=== PATIENT | female | born 1955 | race African-American/Black ===

== ENCOUNTER → 2020-06-13 13:26 | Outpatient (CLI) | payer OTHER, SELFPAY ==
--- NOTE | ~2020-06-13 | MM_ITS ---
EXAMINATION: MM screening [facility] BI w dexter HISTORY: Screening mammogram TECHNIQUE: Craniocaudal and mediolateral oblique 3-D tomosynthesis images were obtained and synthetic 2-D images were generated. CAD analysis was submitted and interpreted. COMPARISON: 04/11/2018, 04/04/2018, 01/26/2017 BREAST PARENCHYMAL COMPOSITION: The breasts are heterogeneously dense, which may obscure small masses . FINDINGS: There is no evidence of suspicious mass, calcification, or architectural distortion to sugg est malignancy in either breast. There has been no suspicious interval change. IMPRESSION: 1. No mammographic evidence of malignancy. 2. Recommend routine screening mammography in one year. BI-RADS Category 1: Negative Reviewed, dictated and finalized at location A. R PHYSICIAN
== END ==
PROVIDERS: Visit Provider Nurse Practitioner
DX: Z12.31 Encounter for screening mammogram for malignant neoplasm of breast (principal)
CPT/HCPCS: 77063; 77067

== ENCOUNTER → 2021-06-17 09:29 | Outpatient (CLI) | payer OTHER, SELFPAY ==
--- NOTE | ~2021-06-17 | MM_ITS ---
EXAMINATION: MM screening [facility] BI w dexter HISTORY: Screening mammogram TECHNIQUE: Craniocaudal and mediolateral oblique 3-D tomosynthesis images were obtained and synthetic 2-D images were generated. CAD analysis was submitted and interpreted. COMPARISON: 06/13/2020, 04/11/2018, 04/04/2019 BREAST PARENCHYMAL COMPOSITION: The breasts are heterogeneously dense, which may obscure small masses . FINDINGS: There is no evidence of suspicious mass, calcification, or architectural distortion to sugg est malignancy in either breast. There has been no suspicious interval change. IMPRESSION: 1. No mammographic evidence of malignancy. 2. Recommend routine screening mammography in one year. BI-RADS Category 1: Negative Reviewed, dictated and finalized at location A. A DIRECTOR
== END ==
PROVIDERS: Visit Provider Nurse Practitioner
DX: Z12.31 Encounter for screening mammogram for malignant neoplasm of breast (principal)
CPT/HCPCS: 77063; 77067

== ENCOUNTER → 2022-09-15 07:44 | Outpatient (CLI) | payer OTHER, SELFPAY ==
--- NOTE | ~2022-09-15 | MM_ITS ---
EXAMINATION: MM screening [facility] BI w dexter HISTORY: Screening TECHNIQUE: Craniocaudal and mediolateral oblique 3-D tomosynthesis images were obtained and synthetic 2-D images were generated. CAD analysis was submitted and interpreted. COMPARISON: Comparison to multiple prior studies sequentially, with oldest reviewed study dated 10/28. BREAST PARENCHYMAL COMPOSITION: The breasts are heterogeneously dense, which may obscure small masses . FINDINGS: There is no evidence of suspicious mass, calcification, or architectural distortion to sugg est malignancy in either breast. There has been no suspicious interval change. IMPRESSION: 1. No mammographic evidence of malignancy. 2. Recommend routine screening mammography in one year. BI-RADS Category 1: Negative Reviewed, dictated and finalized at location A.
== END ==
PROVIDERS: PCP Nurse Practitioner; Visit Provider Nurse Practitioner
DX: Z12.31 Encounter for screening mammogram for malignant neoplasm of breast (principal)
CPT/HCPCS: 77063; 77067

== ENCOUNTER 2023-12-07 07:52 | Outpatient (CLI) | payer MEDICARE, SELFPAY ==
--- NOTE | ~2023-12-07 | MM_ITS ---
EXAMINATION: MM screening [facility] BI w dexter HISTORY: Screening mammogram TECHNIQUE: Craniocaudal and mediolateral oblique 3-D tomosynthesis images were obtained and synthetic 2-D images were generated. CAD analysis was submitted and interpreted. COMPARISON: 09/15/2022, 06/17/2021 bilateral screening mammogram examinations BREAST PARENCHYMAL COMPOSITION: The breasts are heterogeneously dense, which may obscure small masses . FINDINGS: There is no evidence of suspicious mass, calcification, or architectural distortion to sugg est malignancy in either breast. There has been no suspicious interval change. IMPRESSION: 1. No mammographic evidence of malignancy. 2. Recommend routine screening mammography in one year. BI-RADS Category 1: Negative Reviewed, dictated and finalized at location A.
== END 2023-12-07 07:53 ==
PROVIDERS: PCP Obstetrics & Gynecology Gynecology; Visit Provider Nurse Practitioner
DX: Z12.31 Encounter for screening mammogram for malignant neoplasm of breast (principal)
CPT/HCPCS: 77063; 77067

== ENCOUNTER 2024-12-12 07:31 | Outpatient (CLI) | payer MEDICARE, SELFPAY ==
--- NOTE | ~2024-12-12 | MM_ITS ---
EXAMINATION: MM screening [facility] BI w dexter HISTORY: Screening TECHNIQUE: Craniocaudal and mediolateral oblique 3-D tomosynthesis images were obtained and synthetic 2-D images were generated. CAD analysis was submitted and interpreted. COMPARISON: Comparison to multiple prior studies sequentially, with oldest reviewed study dated 05/31. BREAST PARENCHYMAL COMPOSITION: Not dense: There are scattered areas of fibroglandular density. FINDINGS: There is no evidence of suspicious mass, calcification, or architectural distortion to sugg est malignancy in either breast. There has been no suspicious interval change. IMPRESSION: 1. No mammographic evidence of malignancy. 2. Recommend routine screening mammography in one year. BI-RADS Category 1: Negative Reviewed, dictated and finalized at location A.
== END 2024-12-12 07:32 | disposition home or self-care (01) ==
LOC: MICIMG 08:01
PROVIDERS: PCP Obstetrics & Gynecology Gynecology; Visit Provider Obstetrics & Gynecology Gynecology
DX: Z12.31 Encounter for screening mammogram for malignant neoplasm of breast (principal)
CPT/HCPCS: 77063; 77067

== ENCOUNTER 2024-12-12 09:42 | Outpatient (CLI) | payer MEDICARE, SELFPAY ==
--- NOTE | ~2024-12-12 | DEXA_ITS ---
Bone Density Report Name: VENITA SHEIKH Age: 69 Sex: Female Ethnicity: White Date of : 1955 Indication: postmenopausal; screening for osteoporosis; height loss; Referring Provider: ANTONI ROSALES Study: Bone densitometry was performed. Exam Date: December 12, 2024 Accession number: [id number] Bone Density: Region BMD T-score Z-score Classification AP Spine(L1-L4) 1.279 2.1 4.1 Normal Femoral Neck (Left) 0.899 0.4 2.1 Normal Total Hip (Left) 1.190 2.0 3.4 Normal Femoral Neck (Right) 0.819 -0.3 1.4 Normal Total Hip (Right) 1.162 1.8 3.2 Normal Total Hip Mean 1.176 1.9 3.3 Normal World Health Organization criteria for BMD impression classify patients as: Normal (T-score at or above -1.0), Osteopenia (T-score between -1.0 and -2.5), or Osteoporosis (T-score at or below -2.5). 10-year Fracture Risk: FRAX not reported because: All T-scores for Spine Total, Hip Total, Femoral Neck at or above -1.0 Clinical Information Provided by Patient: Has used the following medications: Vitamin D Patient maximum height was 67 Menopause Age: 56 No regular weight bearing exercise Does not regularly consume dairy products Onset of menses at age 16 Number of children 2 Impression: The patient has normal bone mass. Discussion: BONE DENSITY IS ABOVE THE MINIMUM DESIRABLE LEVEL AT ALL SKELETAL SITES TESTED. This patient?s bone mineral density is above the minimum desirable level (T-score -1.0 or better) at all sites measured. The patient should follow a healthful lifestyle (good nutrition with adequate calcium and vitamin D, and appropriate weight-bearing exercise). Follow-Up: Consider repeating this study in 5 years or sooner if there is some new clinical indication. Reported by: HELEN on 12/12/2024 10:25:00 AM. Reviewed, dictated and finalized at location A.
--- OUTSIDE RECORDS SUMMARY | 2024-12-12 09:48 | XMS_ITS | Encounter Summary ---
Author Organization [facility] Address [address] [place] [address] Phone Care Team Providers Care Sap Consultant Name Role Phone Jillian Perkins APRN, LIZETTE Primary Care Provider Americo Jeffery DO Unavailable [phone] Encounter Details Date Type Department Care Team (Late st Contact Info) Description 11/07/2021 Telephone [facility] [address] [place] [address] Americo Jeffery, DO [address] [place] [address] Social History Tobacco Use Types Packs/Day Years Used Date Smoking Tobacco: Never Smokeless Tobacco: Never Alcohol Use Standard Drinks/Week Comments Yes 0 (1 standard drink = 0.6 oz pur e alcohol) occasionally PHQ-2 Answer Date Recorded Total Score - Questions 1-9 0 05/01 Comments No Sex and Gender Information Value Date Recorded Sex Assigned at Not on file Legal Sex Female 1:19 PM PATTERN MECHANIC Gender Identity Not on file Sexual Orientation Not on file documented as of this encounter Miscellaneous Notes * Telephone Encounter - Shayla Burns - 11/07/2021 11:05 AM CDT Ms. Resendiz canceled her appt. Until she gets caught up with her medical bills. Will call back in the future to natali an appt. documented in this encounter Plan of Treatment Upcoming Encounters Date Type Department Care Team (Late st Contact Info) Description 06/08/2025 8:00 AM PATTERN MECHANIC Lab [facility] [address] [phone] Lab, [facility] 06/08/2025 8:15 AM PATTERN MECHANIC Office Visit [facility] [address] [phone] Americo Jeffery DO [address] [place] [phone] documented as of this encounter Visit Diagnoses Not on filedocumented in this encounter Additional Health Concerns Assessment Noted Time PHQ-9 Depression Total Score: 0 05/16/20 21 2:47 PM PATTERN MECHANIC documented as of this encounter Care Teams Sap Consultant Relationship Specialty Start Date End Date Jillian Perkins, POLISHER EYEGLASS FRAMES, PLASTIC SHEETS SUPERVISOR [address] [place] [phone] PCP - General Certified Nurse Practitioner 08/21/19 Americo Jeffery DO [address] [place] [phone] Consulting Physician Oncology 06/06/23 documented as of this encounter
--- OUTSIDE RECORDS SUMMARY | 2024-12-12 09:48 | XMS_ITS | Encounter Summary ---
Author Organization [facility] Address [address] [place] [address] Phone Care Team Providers Care Crepe Sole Scourer Name Role Phone Jillian Perkins APRN, STRIKE OUT MACHINE OPERATOR Primary Care Provider Americo Jeffery DO Unavailable [phone] Encounter Details Date Type Department Care Team (Late st Contact Info) Description 08/15/2021 Telephone [facility] [address] [place] [address] Americo Jeffery, DO [address] [place] [address] Social History Tobacco Use Types [...] on file Legal Sex Female 1:19 PM ORDERLIES TEACHER Gender Identity Not on file Sexual Orientation Not on file documented as of this encounter Miscellaneous Notes * Telephone Encounter - Kajal William - 08/16/2021 9:03 AM CST Pt rescheduled for 11/21 @ 2:30 RLIES TEACHER * Telephone Encounter - Americo Jeffery DO - 08/16/2021 5:17 AM CST Noted, I would give her an appointment in next 2-3 months if she is feeling well. Want to make surewe continue to monitor her cbc. RLIES TEACHER * Telephone Encounter - Karla Pimentel - 08/15/2021 4:19 PM CST Patient forgot. Patient states that she will call when she is ready to reschedule. RLIES TEACHER documented in this encounter Plan of Treatment Upcoming Encounters Date Type Department Care Team (Late st Contact Info) Description 06/08/2025 8:00 AM ORDERLIES TEACHER Lab [facility] [address] [phone] Lab, [facility] 06/08/2025 8:15 AM ORDERLIES TEACHER Office [facility] [address] [phone] Americo Jeffery DO [address] [place] [phone] documented as of this encounter Visit Diagnoses Not on filedocumented in this encounter Additional Health Concerns Assessment Noted Time PHQ-9 Depression Total Score: 0 05/16/20 21 2:47 PM ORDERLIES TEACHER documented as of this encounter Care Teams Crepe Sole Scourer Relationship Specialty Start Date End Date Jillian Perkins, METAL PATTERNMAKER, STRIKE OUT MACHINE OPERATOR [address] [place] [phone] PCP - General Certified Nurse Practitioner 08/21/19 Americo Jeffery DO [address] [place] [phone] Consulting Physician Oncology 06/06/23 documented as of this encounter
--- OUTSIDE RECORDS SUMMARY | 2024-12-12 09:48 | XMS_ITS | Clinical Summary ---
Author Organization [facility] Address [address] [place] [address] Care Team Providers Care Metrology Technician Name Role Phone Unavailable Primary Care Provider Unavailabl e Source Comments [facility],non-owned Affiliates and Associated Physician Practices is amultiple site organization consisting of ambulatory clinics and hospital sitesin [place], [place], [place] and [place]. This disclosure is being madepursuant to the Care Everywhere program and may not contain all information available regarding this patient. Last updated 18.[facility] Social History Tobacco Use Types Packs/Day Years Used Date Smoking Tobacco: Never Assessed Comments Unknown Sex and Gender Information Value Date Recorded Sex Assigned at Not on file Legal Sex Female 5:44 AM ELECTRIC LINEMAN Gender Identity Not on file Sexual Orientation Not on file Plan of Treatment Health Maintenance Due Date Last Done Comments BONE DENSITY TESTING 1955 COLOGUARD (AGES 45-75) - COL ON CA SCREENING 1955 COLON MONITORING 1955 COLONOSCOPY - COLON CA SCREENING 1956 CT COLONOGRAPHY - COLON CA SCREENING 1955 Colorectal Cancer Screening 1955 FIT - COLON CA SCREENING 1955 FLEX SIG - COLON CA SCREENING 1955 LIPID TESTING 1955 MAMMOGRAM 1955 HEPATITIS C SCREENING 07/29/1974 DTAP/TDAP/TD VACCINES (1 - Tdap) 1975 PNEUMOCOCCAL VACCINE 50+ (1 of 1 - PCV) 2006 ZOSTER VACCINE (1 of 2) 2006 COVID-19 VACCINE ( - 2023-2 5 season) 2024 DEPRESSION SCREENING 07/01/2024 INFLUENZA VACCINE (Season Ended) 2025 Respiratory Syncytial Virus (RSV) Vaccine Pt: or over 60 yrs (1 - 1-dose 75+ series) 2031 HEPATITIS B VACCINE Aged Out No longe r eligible based on patient's age to complete this topic HIB VACCINE Aged Out No longer eligi ble based on patient's age to complete this topic HPV VACCINE Aged Out No longer eligi ble based on patient's age to complete this topic MENINGOCOCCAL (Group B) VACC INE SHARED DECISION-MAKING Aged Out No longer eligibl e based on patient's age to complete this topic MENINGOCOCCAL GROUPS A/C/Y/W VACCINE Aged Out No longer eligible b ased on patient's age to complete this topic
--- OUTSIDE RECORDS SUMMARY | 2024-12-12 09:48 | XMS_ITS | Clinical Summary ---
Author Organization [facility] Address [address], [facility] [address] [place] [address] Phone Care Team Providers Care Supervisor Front Name Role Phone Jillian Perkins APRN, DANCE HISTORIAN Primary Care Provider Americo Jeffery DO Unavailable [phone] Allergies No known active allergies Medications ergocalciferol (VITAMIN D) 10211 UNIT Capsule 0 Active aspirin 81 MG Chewable Tablet Take 81 mg by mouth. 0 Active lisinopril (PRINIVIL, ZESTRIL) 5 MG Tablet Take 5 mg by mouth. 0 Active Hydroquinone 4 % Cream APPLY 1 APPLICATION TOPICALLY DAILY NEEDED. FOR AGE SPOTS 1 Active triamcinolone (KENALOG) 0.1 % Cream APPLY TWICE A DAY TO AFFECTED AREA 5 Active famotidine (PEPCID) 40 MG Tablet Take 40 mg by mouth. 4 Active pantoprazole (PROTONIX) 40 MG Tablet Delayed Response Take 40 mg by mouth. 0 12/09/19 25 Discontin ued(Med List Clean Up) atorvastatin (LIPITOR) 20 MG Tablet 1 12/09/19 25 Discontin ued(Med List Clean Up) metFORMIN (GLUCOPHAGE) 500 MG Tablet 1 12/09/19 25 Discontin ued(Med List Clean Up) Active Problems Problem Noted Date Diagnosed Date Essential hypertension 04/02/2022 Gastroesophageal reflux disease 04/02/2022 06/27/2023 Normocytic normochromic anemia 04/02/2022 1 08/28/2022 Encounters Date Type Department Care Team Description 12/08/2024 8:15 AM CDT Office Visit [facility] [address] [phone] Teri Griffin APRN, LIZETTE Myeloproliferative disorder (HCC) (Primary Dx); Abnormal blood smear; Normocytic normochromic anemia 12/08/2024 8:00 AM CDT Lab [facility] [address] [phone] Lab, [facility] Myeloproliferative disorder (HCC); Abnormal blood smear 12/08/2024 Travel from Last 3 Months Family History Medical History Relation Name Comments Lung Cancer Brother Diabetes Mother Hypertension Sister Stroke Sister Relation Name Status Comments Brother Mother Sister Social History Tobacco Use Types Packs/Day Years Used Date Smoking Tobacco: Never Smokeless Tobacco: Never Tobacco Cessation:Counseling Given: Not Answered Alcohol Use Standard Drinks/Week Comments Yes 0 (1 standard drink = 0.6 oz pur e alcohol) occasionally PHQ-2 Answer Date Recorded Total Score - Questions 1-9 0 05/01 Comments No Sex and Gender Information Value Date Recorded Sex Assigned at Not on file Legal Sex Female 1:19 PM SALES AGENT FINANCIAL REPORT SERVICE Gender Identity Not on file Sexual Orientation Not on file Last Filed Vital Signs Vital Sign Reading Time Taken Comments Blood Pressure 134/82 12/08/2024 8:13 AM CDT Pulse 77 12/08/2024 8:13 AM CDT Temperature 36.4 C (97.5 F) 12/08/2024 8:13 AM CDT Respiratory Rate 18 12/08/2024 8:13 AM CDT Oxygen Saturation 97% 12/08/2024 8:13 AM CDT Inhaled Oxygen Concentration - - Weight 98.1 kg (216 lb 4.8 oz) 12/08/2024 8:13 A M CDT Height 170.2 cm (5' 7) 12/08/2024 8:13 AM CDT Body Mass Index 33.88 12/08/2024 8:13 AM CDT Plan of Treatment Upcoming Encounters Date Type Department Care Team (Late st Contact Info) Description 06/08/2025 8:00 AM SALES AGENT FINANCIAL REPORT SERVICE Lab [facility] [address] [phone] Lab, C[facility] 06/08/2025 8:15 AM SALES AGENT FINANCIAL REPORT SERVICE Office Visit [facility] [address] [phone] Americo Jeffery, DO [address] [place] [phone] Health Maintenance Due Date Last Done Comments DEXA Bone Density 1955 TdaP Immunization 1955 SARS-COV-2 Immunization (#1) 1961 Pneumococcal Immunization (5 0+ years) (1 of 2 - PCV) 1975 Zoster Immunization (1 of 2) 1975 Cologuard 2001 Colonoscopy 2001 Colorectal Cancer Screening 2001 Immunochemical Fecal Occult Blood 2001 Mammogram 04/30/2020 04/30/2019 Influenza Immunization (Seas on Ended) 2025 Respiratory Syncytial Virus (RSV) Immunization (Adult) (1 - 1-dose 75+ series) 2031 Hepatitis C Virus (HCV) Screening Completed 021 Hepatitis B Immunization Aged Out No longer eligible based on patient's age to complete this topic Human Papillomavirus (HPV) Immunization Aged Out No longer eligible b ased on patient's age to complete this topic Meningococcal Immunization (ACWY) Aged Out No longer eligible based on patient's age to complete this topic Rotavirus Immunization Aged Out No lo nger eligible based on patient's age to complete this topic Procedures Procedure Name Priority Date/Time Associated Diagnosis Comments COMPLETE BLOOD COUNT (CBC) WITH DIFF Routine 12/08/2024 8:03 AM CDT Myeloproliferative disorder (HCC) Abnormal blood smear LACTATE DEHYDROGENASE (LD) Routine 12/08/2024 8:03 AM CDT Myeloproliferative disorder (HCC) Abnormal blood smear from Last 3 Months Results * (ABNORMAL) LACTATE DEHYDROGENASE (LD) (12/08/2024 8:03 AM CDT) LDH 307(H) 140 - 271 U/L [facility] Blood 12/08/2024 8:03 AM CDT Narrative [facility] - 12/08/2024 9:23 AM CDT Release to patient->Immediate us Shayla Cabezas PACS ADMINISTRATOR, DANCE HISTORIAN CHEMISTRY ORDERAB LES Final Result [facility] [place] [address], * (ABNORMAL) COMPLETE BLOOD COUNT (CBC) WITH DIFF (12/08/2024 8:03 AM CDT) WBC 4.0 4.0 - 10.0 10*3/uL [facility] HGB 12.4 11.2 - 15.7 g/dL [facility] HCT 39.2 34.1 - 44.9 % [facility] PLT 258 163 - 369 10*3/uL [facility] MPV 9.2(L) 9.4 - 12.4 fL [facility] RBC 4.47 3.93 - 5.22 10*6/uL [facility] MCV 88 79 - 95 fL [facility] MCH 27.7 25.6 - 32.2 pg [facility] MCHC 31.6(L) 32.2 - 36.5 g/dL [facility] RDW 18.7(H) 11.6 - 14.4 % [facility] Absolute Neutrophil Count 2,332 cells/uL [facility] Absolute Seg Count 2,291 1,440 - 6,600 cells/uL [facility] Absolute Band Count 40 0 - 800 cells/uL [facility] Absolute Lymph Count 1,166 760 - 4,000 cells/uL [facility] Absolute Esmeralda Count 241 160 - 1,200 cells/uL [facility] Absolute Eos Count 80 0 - 300 cells/uL [facility] Absolute Baso Count 40 0 - 100 cells/uL [facility] Segmented Neutrophils 57 36 - 66 % [facility] Band Neutrophils 1 0 - 8 % [facility] Lymphocytes 29 19 - 40 % [facility] Monocytes 6 4 - 12 % [facility] Eosinophils 2 0 - 3 % [facility] Basophils 1 0 - 1 % [facility] Myelocytes 4(H) 0 - 2 % [facility] WBC Estimate Normal [facility] Platelet Estimate Normal CA [facility] RBC Morphology Abnormal [facility] Anisocytosis 1+ [facility] Poikilocytosis 1+ [facility] Teardrop Cells 1+ [facility] Large Platelets Present [facility] Blood 12/08/2024 8:03 AM CDT Narrative [facility] - 12/08/2024 9:58 AM CDT Release to patient->Immediate Shayla Cabezas APRN, DANCE HISTORIAN HEMATOLOGY ORDERA BLES Final Result [facility] [place] [address], from Last 3 Months Insurance [facility]IC[facility] Care Teams Supervisor Front Relationship Specialty Start Date End Date Jillian Perkins, PACS ADMINISTRATOR, DANCE HISTORIAN [address] [place], [place] [phone] PCP - General Certified Nurse Practitioner 08/21/19 Americo Jeffery DO [address] [place] [phone] Consulting Physician Oncology 06/06/23
== END 2024-12-12 09:43 | disposition home or self-care (01) ==
LOC: ANHIMG 09:46
PROVIDERS: PCP Nurse Practitioner; Visit Provider Obstetrics & Gynecology Gynecology
DX: Z13.820 Encounter for screening for osteoporosis (principal); Z78.0 Asymptomatic menopausal state
CPT/HCPCS: 77080